=== PATIENT | female | born 1995 | race Caucasian/White ===

== ENCOUNTER 2016-11-25 21:07 | Emergency (ER) | payer SELFPAY ==
[~2016-11-25] VITALS: Ht 157.5 cm; Wt 51.2 kg
[2016-11-25 23:01] LABS: HEMATOCRIT 35.7 % (37.0-47.0); HEMOGLOBIN 11.2 g/dl (12.0-16.0); IMMATURE GRANULOCYTES 0.3 % (0.0-1.0); MEAN CELL VOLUME 94.4 fL CALC (80.0-100.0); MEAN CORPUSCULAR HGB 29.6 pG CALC (26.0-32.0); MEAN CORPUSCULAR HGB CONC 31.4 g/L CALC (32.0-36.0); NEUT# 7.36 thou/uL (2.00-7.15); RED BLOOD COUNT 3.78 mill/uL (4.20-5.60); RED CELL DISTRI WIDTH 12.6 % (11.5-15.5)
[2016-11-25 23:51] LABS: ALBUMIN 4.6 g/dL (3.2-5.0); ALKALINE PHOSPHATASE 84 u/l (38-126); ANION GAP 18 (6-22 (CALC)); BILIRUBIN, TOTAL 0.8 mg/dL (0.0-1.4); BUN 12 mg/dL (7-17); BUN/CREATININE RATIO 16 (12-20 (CALC)); CALCIUM 9.5 mg/dL (8.4-10.2); CARBON DIOXIDE 25 mmol/l (22-30); CHLORIDE 104 mmol/l (95-108); CREATININE 0.8 mg/dL (0.5-1.0); GFR > 60 ML/MIN (>=60 (CALC)); GFR FOR AFR.AMER. > 60 ML/MIN (>=60 (CALC)); GLUCOSE 83 mg/dL (65-105); POTASSIUM 4.2 mmol/l (3.5-5.1); SGOT/AST 28 u/l (14-36); SGPT/ALT 26 u/l (9-52); SODIUM 143 mmol/l (137-146); TOTAL PROTEIN 7.9 g/dL (6.3-8.2)
[2016-11-26] MEDS ORDERED: IBUPROFEN600 MG PO (02:38)
[2016-11-26 02:50] VITALS: BP 98/51
== END 2016-11-26 02:55 | disposition home or self-care (01) | DRG 563 ==
LOC: ED 21:07
PROVIDERS: Emergency Medicine
DX: S43.004A Unspecified dislocation of right shoulder joint, initial encounter (principal); S30.811A Abrasion of abdominal wall, initial encounter; S50.11XA Contusion of right forearm, initial encounter; S60.311A Abrasion of right thumb, initial encounter; S40.811A Abrasion of right upper arm, initial encounter; S40.211A Abrasion of right shoulder, initial encounter; S80.211A Abrasion, right knee, initial encounter; V13.4XXA Pedal cycle driver injured in collision with car, pick-up truck or van in traffic accident, initial encounter; Y92.488 Other paved roadways as the place of occurrence of the external cause; Y93.55 Activity, bike riding
CPT/HCPCS: Q9967

== ENCOUNTER 2017-10-29 17:49 | Emergency (ER) | payer OTHER ==
[~2017-10-29] VITALS: Ht 157.5 cm; Wt 73.6 kg
[~2017-10-29 17:49] MED LIST: IBUPROFEN600 MG PO
[2017-10-29] MEDS ORDERED: ACYCLOVIR200 MG PO (18:30)
[2017-10-29 18:31] VITALS: BP 128/68
== END 2017-10-29 18:30 | disposition home or self-care (01) | DRG 782 ==
LOC: ED 17:49
DX: O26.853 Spotting complicating pregnancy, third trimester (principal); Z3A.39 39 weeks gestation of pregnancy

== ENCOUNTER 2020-10-25 | Emergency (ER) | payer OTHER ==
[~2020-10-25] MED LIST changes: +ACYCLOVIR200 MG PO
[2020-10-25] MEDS ORDERED: ACYCLOVIR400 MG PO (10:03)
[2020-10-25 11:06] LABS: HEMATOCRIT 40.8 % (37.0-47.0); HEMOGLOBIN 12.9 g/dl (12.0-16.0); IMMATURE GRANULOCYTES 0.6 % (0.0-5.0); MEAN CELL VOLUME 89.7 fL CALC (80.0-100.0); MEAN CORPUSCULAR HGB 28.4 pG CALC (26.0-32.0); MEAN CORPUSCULAR HGB CONC 31.6 g/dL CAL (32.0-36.0); NEUT# 8.54 thou/uL (2.00-7.15); RED BLOOD COUNT 4.55 mill/uL (4.20-5.60); RED CELL DISTRI WIDTH 12.6 % (11.5-15.5)
[2020-10-25 11:12] LABS: URINE BLOOD DIPSTICK TRACE-INTACT (NEGATIVE); URINE GLUCOSE - DIPSTICK NEGATIVE (NEGATIVE); URINE KETONE TRACE mg/dL (NEGATIVE); URINE PROTEIN - DIPSTICK 30 mg/dL (NEG-TRACE); URINE SPECIFIC GRAVITY 1.025
[2020-10-25 11:14] LABS: URINE BILIRUBIN - DIPSTICK SMALL (NEGATIVE)
[2020-10-25 11:15] LABS: URINE AMORPH SEDIMENT MODERATE hpf (NONE-FEW); URINE BACTERIA FEW hpf; URINE COLOR DK. YELLOW; URINE EPITHELIAL CELLS MANY EPI/hpf (0-FEW); URINE LEUK ESTERASE SMALL (NEGATIVE); URINE MUCUS FEW hpf (NONE-FEW); URINE NITRITE - DIPSTICK NEGATIVE (Negative)
[2020-10-25 11:29] LABS: ALBUMIN 4.5 g/dL (3.2-5.0); ALKALINE PHOSPHATASE 98 u/l (38-126); AMYLASE 52 u/l (30-110); ANION GAP 9 (6-22 (CALC)); BILIRUBIN, TOTAL 0.8 mg/dL (0.0-1.4); BUN 9 mg/dL (7-17); BUN/CREATININE RATIO 12 (12-20 (CALC)); CARBON DIOXIDE 33 mmol/l (22-30); CHLORIDE 97 mmol/l (95-108); CREATININE 0.7 mg/dL (0.5-1.0); GFR > 60 ML/MIN (>=60 (CALC)); GFR FOR AFR.AMER. > 60 ML/MIN (>=60 (CALC)); LIPASE 50 u/l (23-300); SGOT/AST 23 u/l (14-36); SODIUM 135 mmol/l (137-146); TOTAL PROTEIN 8.4 g/dL (6.3-8.2)
[2020-10-25] MEDS ORDERED: ULTRAM50 M1 PO (13:02)
[2020-10-25] MEDS ORDERED: CEPHALEXIN500 M1 PO (13:02)
== END 2020-10-25 13:19 | disposition home or self-care (01) | DRG 760 ==
PROVIDERS: Emergency Medicine
DX: N83.201 Unspecified ovarian cyst, right side (principal); N39.0 Urinary tract infection, site not specified
CPT/HCPCS: Q9967

== ENCOUNTER 2021-04-13 20:25 | Emergency (ER) | payer OTHER ==
[~2021-04-13] VITALS: Ht 157.5 cm; Wt 54.0 kg
[~2021-04-13 20:25] MED LIST changes: +ACYCLOVIR400 MG PO; +CEPHALEXIN500 M1 PO; +ULTRAM50 M1 PO
[2021-04-13 21:00] LABS: HEMATOCRIT 44.6 % (37.0-47.0); HEMOGLOBIN 14.5 g/dl (12.0-16.0); IMMATURE GRANULOCYTES 0.4 % (0.0-5.0); MEAN CELL VOLUME 88.3 fL CALC (80.0-100.0); MEAN CORPUSCULAR HGB 28.7 pG CALC (26.0-32.0); MEAN CORPUSCULAR HGB CONC 32.5 g/dL CAL (32.0-36.0); NEUT# 7.71 thou/uL (2.00-7.15); RED BLOOD COUNT 5.05 mill/uL (4.20-5.60); RED CELL DISTRI WIDTH 13.2 % (11.5-15.5)
[2021-04-13 21:19] LABS: ALBUMIN 5.2 g/dL (3.2-5.0); ALKALINE PHOSPHATASE 65 u/l (38-126); BILIRUBIN, TOTAL 0.6 mg/dL (0.0-1.4); BUN 9 mg/dL (7-17); BUN/CREATININE RATIO 11 (12-20 (CALC)); CHLORIDE 108 mmol/l (95-108); CREATININE 0.9 mg/dL (0.5-1.0); ETHYL ALCOHOL 185 mg/dl (0-30); GFR > 60 ML/MIN (>=60 (CALC)); GFR FOR AFR.AMER. > 60 ML/MIN (>=60 (CALC)); MAGNESIUM 1.9 mg/dL (1.6-2.3); POTASSIUM 4.4 mmol/l (3.5-5.1); SGOT/AST 36 u/l (14-36); TOTAL PROTEIN 8.9 g/dL (6.3-8.2)
[2021-04-13 21:20] LABS: ANION GAP 15 (6-22 (CALC)); CARBON DIOXIDE 25 mmol/l (22-30); SODIUM 144 mmol/l (137-146)
[2021-04-14 06:11] VITALS: BP 133/56
== END 2021-04-14 06:12 | disposition home or self-care (01) ==
LOC: ED 20:25
PROVIDERS: Family Medicine
DX: S00.83XA Contusion of other part of head, initial encounter (principal); S00.511A Abrasion of lip, initial encounter; F10.129 Alcohol abuse with intoxication, unspecified; F17.200 Nicotine dependence, unspecified, uncomplicated; W19.XXXA Unspecified fall, initial encounter
CPT/HCPCS: J2060

== ENCOUNTER 2021-05-02 08:25 | Emergency (ER) | payer OTHER ==
[~2021-05-02] VITALS: Ht 157.5 cm; Wt 54.5 kg
[2021-05-02] MEDS ORDERED: PREDNISONE50 MG PO (11:04)
[2021-05-02] MEDS ORDERED: EPIPEN 2-P0.3 MG/0.3 IM (11:04)
[2021-05-02 12:25] VITALS: BP 114/64
== END 2021-05-02 13:15 | disposition home or self-care (01) ==
LOC: ED 08:25
DX: T78.3XXA Angioneurotic edema, initial encounter (principal); F17.210 Nicotine dependence, cigarettes, uncomplicated

== ENCOUNTER 2021-06-11 09:29 | Emergency (ER) | payer MEDICAID ==
[~2021-06-11] VITALS: Ht 157.5 cm; Wt 60.0 kg
[~2021-06-11 09:29] MED LIST changes: +EPIPEN 2-P0.3 MG/0.3 IM; +PREDNISONE50 MG PO
[2021-06-11] MEDS ORDERED: ACYCLOVIR800 MG PO (09:48)
[2021-06-11] MEDS ORDERED: ACYCLOVIR400 MG PO (09:48)
[2021-06-11 11:10] VITALS: BP 124/78
== END 2021-06-11 11:20 | disposition home or self-care (01) ==
LOC: ED 09:29
DX: S90.32XA Contusion of left foot, initial encounter (principal); A60.00 Herpesviral infection of urogenital system, unspecified; F17.200 Nicotine dependence, unspecified, uncomplicated; X58.XXXA Exposure to other specified factors, initial encounter